=== PATIENT | female | born 1985 | race Caucasian/White ===

== ENCOUNTER 2020-09-15 07:27 | Day surgery (SDC) | payer BC ==
[2020-09-14 11:28] LABS: Absolute Lymphocytes (CBC) 1.4 K/uL (0.7-4.9); Basophils % 0.8 % (0-1.3); Hematocrit 37.9 % (36.0-45.0); Lymphocytes % 28.2 % (15.3-44.8); MPV 10.8 fL (7.6-11.3); RBC Red Blood Cell Count 4.31 M/uL (3.86-4.86)
[2020-09-14 11:47] LABS: ALT/SGPT 23 U/L (12-78); AST/SGOT 10 U/L (15-37); Albumin 3.8 g/dL (3.4-5.0); Alkaline Phosphatase 60 U/L (45-117); Amylase 43 U/L (25-115); BUN Blood Urea Nitrogen 12 mg/dL (7-18); Bicarbonate 29 mmol/L (21-32); Bilirubin Direct < 0.1 mg/dL (0-0.2); Bilirubin Total 0.4 mg/dL (0.2-1.0); Glucose Level 87 mg/dL (74-106); Lipase 91 U/L (73-393); Potassium 4.2 mmol/L (3.5-5.1); Protein, Total 6.8 g/dL (6.4-8.2); Sodium Level 141 mmol/L (136-145)
[2020-09-15] MEDS ORDERED: CELECOXIB 100 MG CAPSULE PO ONE (07:45)
[2020-09-15] MEDS ORDERED: SCOPOLAMINE HYDROBROMIDE PATCH TD ONE ×2 (07:45→08:07)
[2020-09-15] MEDS ORDERED: ACETAMINOPHEN 500 MG TAB PO ONE (07:45)
[2020-09-15] MEDS ORDERED: Ringers Lactate 1,000 ML IV ONE (07:55)
[2020-09-15] MEDS ORDERED: CEFAZOLIN/SWI 1gm 1 GM/10 ML SYR ONE (07:55)
[2020-09-15] MEDS ORDERED: CELECOXIB 100 MG CAPSULE ONE (08:07)
[2020-09-15] MEDS ORDERED: ACETAMINOPHEN 500 MG TAB ONE (08:07)
[2020-09-15] MEDS ORDERED: LIDOCAINE 1% MPF 5 ML VIAL ONE (09:15)
[2020-09-15] MEDS ORDERED: ROCURONIUM 50 MG/5 ML VIAL IV ONE (09:15)
[2020-09-15] MEDS ORDERED: propofoL 200 MG/20 ML VIAL IV ONE (09:15)
[2020-09-15] MEDS ORDERED: MIDAZOLAM HCL 2 MG/2 ML INJ ONE (09:15)
[2020-09-15] MEDS ORDERED: FENTANYL CITR 100 MCG/2 ML ONE ×3 (09:15→10:53)
--- NOTE | 2020-09-15 09:40 | P.BOP ---
Preoperative diagnosis: symptomatic cholelithiasis Postoperative diagnosis: same Primary procedure: Laparoscopic cholecystectomy Manager Surgical: JEEVAN AVALOS ([employer]) Estimated blood loss: <10cc Specimen: gb Anesthesia: General Complications: None Transferred to: Recovery Room Condition: Good
[2020-09-15] MEDS ORDERED: dexAMETHasone 10 MG/ML VIAL ONE (09:44)
[2020-09-15] MEDS ORDERED: KETOROLAC 30 MG/ML INJ ONE (09:44)
[2020-09-15] MEDS ORDERED: ONDANSETRON 4 MG/2 ML VIAL ONE ×2 (09:46→10:25)
[2020-09-15] MEDS ORDERED: GLYCOPYRROLATE 0.2 MG/ML SYR ONE ×2 (09:51)
[2020-09-15] MEDS ORDERED: NEOSTIGMINE 1 MG/ML -5 ML ONE (09:54)
[2020-09-15] MEDS ORDERED: PROMETHAZINE INJ 25 MG/ML AMP ONE (10:13)
[2020-09-15] MEDS ORDERED: METOCLOPRAMIDE 10 MG/2mL INJ ONE (10:35)
[2020-09-15 10:40] VITALS: O2SAT 100
[2020-09-15] MEDS: CODEINE 30MG/APAP 300MG TAB ONE ×2 (11:35→12:00)
--- NOTE | 2020-09-15 12:45 | DS ---
Diagnoses: Symptomatic cholelithiasis, right upper quadrant pain, cholecystitis. Procedure: Laparoscopic cholecystectomy. Disposition: Home. Discharge Instructions: Activity as tolerated. No heavy lifting. Plan: Follow up in my office in 1 week. Call for appointment at [phone]. Keep area dry for 48 surekha rs, then may shower. Keep Steri-Strips intact. Medications: See orders. GARCIA/[place] Voice ID: [id number] Report ID: [id number]
--- NOTE | 2020-09-15 12:45 | OP ---
Date of Procedure: 09/15/2020 Surgeon: Samuel Gallo MD Records Administrator: Rashmi Church. Preoperative Diagnoses: Symptomatic cholelithiasis, right upper quadrant abdominal pain. Postoperative Diagnoses: Symptomatic cholelithiasis, right upper quadrant abdominal pain. Procedure: Laparoscopic cholecystectomy. Estimated Blood Loss: Less than 10 mL. Specimen: Gallbladder. Anesthesia: General plus local. Indication: This is the case of a patient, comes to us with above diagnoses and symptoms of acute ch olecystitis also. Benefits, alternatives, and risks of laparoscopic possible open cholecystectomy we re fully explained, which include, but not limited to infection, bleeding, damage to adjacent structu res, anesthesia complication, choledocholithiasis, bile leak, pancreatitis, OR, and even . She also understands this may not relieve any symptoms. She might need more than one surgical interventi on. She understood, signed a consent. Procedure In Detail: The patient was brought to the operating room, placed in supine position. Anes thesia was induced without complication. Abdominal area was prepped and draped in the usual sterile fashion. Marcaine 0.5% was injected for local anesthetic followed by sharp incision of the skin in t he infraumbilical region. The incision was carried down to fascia, which was opened under direct vis ion. Vicryl #1 placed inside the fascia. Genny trocar was carefully introduced. Pneumoperitoneum was obtained. I placed 3 more trocars, 5 mm each one of them in the epigastric and right upper quadr ant under direct visualization. This allowed me to put a grasper in the fundus of the gallbladder an d another grasper in the infundibulum retracting the gallbladder in the inferolateral fashion exposin g the triangle of Calot and obtaining critical view. The cystic duct and cystic artery were clearly isolated, freed circumferentially and a connection between those and the gallbladder were clearly gavin ntified. I proceeded to ligate those by using at least 3 clips proximal, 1 clip distal, ligation in the middle. Same was done with the cystic artery. No bile leak, no bleeding. The gallbladder was r emoved from the liver using Bovie cauterizer and removed from abdominal cavity using an EndoCatch thr ough the umbilical incision. The area was inspected once again. No bile leak, no bleeding. Clips w ere intact. At that moment, I proceeded to remove the trocars under direct vision. Deflated pneumop eritoneum. Closed the fascia with #1 Vicryl. Irrigated the subcutaneous tissue, closed with 3-0 chr omic and the skin in a subcuticular fashion and Steri-Strips on top. Sponge count and instrument cou nts correct. The patient tolerated the procedure well. The patient was sent to Recovery in stable c ondition. GARCIA/[place] Voice ID: [id number] Report ID: [id number]
[2020-09-15 14:21] VITALS: BP 116/62; TEMP 97
== END 2020-09-15 13:10 | disposition home or self-care (01) ==
LOC: OR 07:27
PROVIDERS: ATTEND Surgery
PROC: 0FT44ZZ Resection of Gallbladder, Percutaneous Endoscopic Approach (ICD-10-PCS; principal; 2020-09-15 08:30)
DX: K80.10 Calculus of gallbladder with chronic cholecystitis without obstruction (principal); R10.11 Right upper quadrant pain; Z20.822 Contact with and (suspected) exposure to COVID-19
CPT/HCPCS: 85025; 80048; 36415; 82150; 84703; 80076; 88304; 83690; 47562; U0003; J2704; J2765; J2550; J2250; J3010 ×3; J1100; J2710; J0690; J7120; J2405 ×2